=== PATIENT | male | born 1985 | race Caucasian/White ===

== ENCOUNTER 2020-04-20 11:37 | Emergency (ER) | payer MEDICAID ==
[~2020-04-20] VITALS: Ht 182.9 cm; Wt 102.0 kg
[2020-04-20] MEDS ORDERED: SODIUM CHLORIDE 0.9% 1,000 ML IV ONE (12:06)
[2020-04-20] MEDS ORDERED: LEVETIRACETAM 500MG TABLET PO ONE (12:15)
[2020-04-20 14:31] LABS: BASOPHILS % 0.5 % (0.0-2.0); EOSINOPHILS % 1.6 % (0.0-5.0); HEMATOCRIT. 44.5 % (42.0-52.0); HEMOGLOBIN. 15.2 g/dL (14.0-18.0); MEAN CORPUSCULAR HEMOGLOBIN 30.7 pg (28.0-32.0); MEAN PLATELET VOLUME 7.2 fl (7.4-10.4); MONOCYTES % 6.1 % (2.0-8.0); NEUTROPHILS % 69.8 % (40.0-76.0); PLATELET 251 x1000/uL (130-400); RED BLOOD CELL COUNT 4.94 mill/uL (4.7-6.1); RED CELL DISTRIBUTION WIDTH 13.8 % (11.6-14.6)
[2020-04-20 14:36] LABS: CHLORIDE 115 mEq/L (98-107)
[2020-04-20 16:56] VITALS: BP 126/86
== END 2020-04-20 17:00 | disposition home or self-care (01) ==
LOC: ER 11:37
DX: G40.909 Epilepsy, unspecified, not intractable, without status epilepticus (principal)
CPT/HCPCS: 36415; 70450; 80053; 85025; 99285; J7030